=== PATIENT | female | born 1965 | race Caucasian/White ===

== ENCOUNTER → 2017-12-04 | Day surgery (SDC) | payer BC ==
[~2017-12-04] MED LIST: CLARITIN10 M1 PO; LYRICA300 MG PO; SINGULAIR10 MG PO; [UNRECOGNIZED DRUG - OTHER] PO
== END | disposition home or self-care (01) ==
LOC: ADM 11-27 13:00 → AMB-ENDOS 05:25
DX: D12.2 Benign neoplasm of ascending colon (principal); K64.1 Second degree hemorrhoids